=== PATIENT | female | born 1970 | race Caucasian/White ===

== ENCOUNTER → 2018-04-26 | Outpatient (CLI) | payer BC ==
--- NOTE | 2018-04-27 09:26 | RADIOLOGY IMAGING REPORT ---
[place] [facility] [place] NAME: OLINDA CORRIGAN : [id number] MR: [id number] V: [id number] EXAM DATE: [id number] ORDERING PHYSICIAN: TITI CABA TECHNOLOGIST: Deanne Moralez PROCEDURE:BILATERAL DIGITAL SCREENING MAMMOGRAM WITH CAD ASSISTED INTERPRETATION & 3D TOMOSYNTHESIS COMPARISON:None this is the patient's baseline. INDICATIONS:SCREENING FINDINGS: Moderately dense fibroglandular tissue is seen throughout the breasts. There is a small focal asymmetry just inferior to midline on the Right MLO view in the anterior 1/3 for which Spot compression view is recommended. DIAGNOSTIC CATEGORY 0--INCOMPLETE: NEED ADDITIONAL IMAGING EVALUATION. RECOMMENDATIONS: ADDITIONAL MAMMOGRAPHIC VIEWS REQUIRED: RIGHT BREAST. IMPRESSION: BIRADS 0: Incomplete. Additional views of the Right breast recommended as described. Dictated by: Zahira Huang M.D. on 04/26/2018 at 16:37 Transcribed by: RUDOLPH on 04/27/2018 at 8:07 Approved by: Zahira Huang M.D. on 04/27/2018 at 9:26 [facility]
== END ==
LOC: MAMO 08:25
PROVIDERS: ATTEND Obstetrics & Gynecology
DX: R92.2 Inconclusive mammogram (principal)
CPT/HCPCS: 77063; 77067

== ENCOUNTER → 2018-06-07 | Outpatient (CLI) | payer BC ==
--- NOTE | 2018-06-08 08:31 | RADIOLOGY IMAGING REPORT ---
FACILITY: [facility] PATIENT NAME: OLINDA CORRIGAN : [id number] MR: [id number] V: [id number] EXAM DATE: ORDERING PHYSICIAN: TITI CABA TECHNOLOGIST: Yadi Chacko PROCEDURE:RIGHT DIGITAL DIAGNOSTIC MAMMOGRAM WITH CAD ASSISTED INTERPRETATION & 3D TOMOSYNTHESIS COMPARISON:Prior mammogram dated 04/26/18 INDICATIONS:FURTHER EVAL FINDINGS: The patient returned for spot compression view in the Right MLO projection with 3D tomosynthesis. The focal asymmetry just inferior to the mid nipple line on the recent Right MLO view appeared compressible & apparently represents a summation shadow. DIAGNOSTIC CATEGORY 2--BENIGN FINDING. RECOMMENDATIONS: ROUTINE MAMMOGRAM AND CLINICAL EVALUATION. IMPRESSION: BIRADS 2: Benign finding. No significant abnormality of the Right breast is seen. Dictated by: Zahira Huang M.D. on 06/07/2018 at 14:19 Transcribed by: [email or web address] on 06/07/2018 at 14:51 Approved by: Zahira Huang M.D. on 06/08/2018 at 8:30 [facility]
== END ==
LOC: MAMO 00:21
PROVIDERS: ATTEND Obstetrics & Gynecology
DX: R92.8 Other abnormal and inconclusive findings on diagnostic imaging of breast (principal)
CPT/HCPCS: 77061; 77065